=== PATIENT | female | born 1980 | race Caucasian/White ===

== ENCOUNTER 2018-03-01 15:47 | Outpatient (CLI) | payer OTHER | END 2018-03-01 15:55 | disposition home or self-care (01) | LOC: LAB 15:47 | DX: N30.00 Acute cystitis without hematuria (principal) ==

== ENCOUNTER 2018-05-14 08:29 | Emergency (ER) | payer OTHER ==
[~2018-05-14] VITALS: Ht 170.2 cm; Wt 99.8 kg
[2018-05-14] MEDS ORDERED: PREDNISONE20 MG PO (21:13)
[2018-05-14] MEDS ORDERED: LEVALBUTER0.63 MG/3 IH (21:13)
[2018-05-14] MEDS ORDERED: GILTUSS TR TAB1 EACH PO (21:17)
== END 2018-05-14 21:32 | disposition home or self-care (01) ==
LOC: ER 08:29
DX: J45.998 Other asthma (principal); J06.9 Acute upper respiratory infection, unspecified

== ENCOUNTER 2022-11-16 11:21 | Outpatient (CLI) | payer OTHER ==
[~2022-11-16 11:21] MED LIST: GILTUSS TR TAB1 EACH PO; LEVALBUTER0.63 MG/3 IH; PREDNISONE20 MG PO
== END 2022-11-16 11:30 | disposition home or self-care (01) ==
LOC: LAB 11:21
PROVIDERS: ATTEND Urology
DX: N39.0 Urinary tract infection, site not specified (principal)